=== PATIENT | male | born 1990 | race Caucasian/White ===

== ENCOUNTER 2025-03-12 18:12 | Emergency (ER) | payer BC ==
[2025-03-12] MEDS ORDERED: Ondansetron PF 4 MG/2 ML Vial ONE (18:27)
== END 2025-03-12 20:02 | disposition short-term general hospital (02) ==
LOC: BURERS 18:12
DX: S82.852A Displaced trimalleolar fracture of left lower leg, initial encounter for closed fracture (principal); F17.210 Nicotine dependence, cigarettes, uncomplicated; W19.XXXA Unspecified fall, initial encounter
CPT/HCPCS: 96374; 96375; 96376; J2270; J2405